=== PATIENT | female | born 1930 | race Caucasian/White ===

== ENCOUNTER 2019-03-19 15:52 | Emergency (ER) | payer OTHER ==
[~2019-03-19] VITALS: Ht 154.9 cm; Wt 49.0 kg
--- NOTE | 2019-03-19 16:15 | NUR ---
AAOX4. PATIENT WAS RIAN BY RA TO ER DUE TO C/O OF DIZZINESS FROM HOME. NAD. VSS. GAIT IS STEADY W/ ASSISTANCE. AWAITING MD FOR FURTHER EVALUATION. WILL CONTINUE TO MONITOR PATIENT FOR SAFETY. BLANKET GIVEN FOR COMFORT.
--- NOTE | 2019-03-19 16:20 | NUR ---
BLOOD DRAWN AND SENT TO LAB
[2019-03-19] MEDS ORDERED: IV NS 0.9% 500 ML BAG IV ONE (16:30)
--- NOTE | 2019-03-19 16:35 | NUR ---
URINE SPECIMEN SENT TO LAB
[2019-03-19 16:38] LABS: BASOPHILS % (AUTO) 0.3 % (0.0-2.0); EOSINOPHILS % (AUTO) 0.2 % (0.0-6.0); HEMATOCRIT 43 % (33-45); HEMOGLOBIN 14.5 g/dL (11.5-14.8); LYMPHOCYTES # (AUTO) 2.1 /CMM (0.8-4.8); LYMPHOCYTES % (AUTO) 24.8 % (20.0-44.0); MEAN CORPUSCULAR HGB CONC 34 g/dl (31.0-36.0); MEAN CORPUSCULAR VOLUME 94 fL (82-100); MONOCYTES # (AUTO) 1.1 /CMM (0.1-1.30); MONOCYTES % (AUTO) 12.7 % (2.0-12.0); NEUTROPHILS # (AUTO) 5.2 /CMM (1.8-8.9); PLATELET COUNT (AUTO) 245 /CMM (150-450); RED BLOOD CELL COUNT(AUTO) 4.57 MIL/uL (4.0-5.2); WHITE BLOOD COUNT (AUTO) 8.4 K/uL (4.3-11.0)
[2019-03-19 16:54] LABS: ALANINE AMINOTRANSFERASE 22 U/L (12-78); ALBUMIN 3.9 g/dL (3.4-5.0); ALKALINE PHOSPHATASE 43 U/L (46-116); ASPARTATE AMINOTRANSFERASE 25 U/L (15-37); BILIRUBIN,DIRECT 0.2 mg/dL (0.0-0.2); BILIRUBIN,TOTAL 0.6 mg/dL (0.2-1.0); TOTAL PROTEIN, SERUM 7.9 g/dL (6.4-8.2)
[2019-03-19 17:29] LABS: APPEARANCE,URINE Clear (CLEAR); BILIRUBIN,URINE Negative (NEGATIVE); BLOOD, URINE Negative Ery/uL (NEGATIVE); COLOR,URINE Yellow (YELLOW); KETONES,URINE Negative (NEGATIVE); LEUKOCYTE ESTERASE ,URINE Trace (NEGATIVE); NITRITE, URINE Negative (NEGATIVE); PH,URINE 7.5 (5.0-8.0); PROTEIN,URINE Negative (NEGATIVE); UGLUCOSE 100 MG/DL mg/dL (NEGATIVE); UROBILINOGEN,URINE 0.2 EU/dL (0.2)
[2019-03-19 17:46] LABS: RBC,URINE 0-2 /HPF (0-2)
[2019-03-19 17:47] LABS: BACTERIA,URINE Rare /HPF (None Seen); SQUAMOUS EPITHELIAL CELL,UR Few /HPF (None Seen); URINE AMORPHOUS URATE Few /HPF (None Seen); WBC,URINE 2-4/HPF /HPF (0-3)
[2019-03-19] MEDS ORDERED: METOCLOPRAMIDE HCL 10 MG/2 ML VIAL ONE ×2 (18:39→20:22)
[2019-03-19] MEDS ORDERED: MECLIZINE HCL 12.5 MG TABLET ONE (18:39)
[2019-03-19 18:58] LABS: CALCIUM, SERUM 9.2 mg/dL (8.5-10.1); CREATININE 0.7 mg/dL (0.6-1.3); POTASSIUM 3.9 mmol/L (3.5-5.1)
[2019-03-19] MEDS ORDERED: METOCLOPRAMIDE HCL 10 MG/2 ML VIAL IV ONE ×2 (19:00→20:30)
[2019-03-19] MEDS ORDERED: MECLIZINE HCL 12.5 MG TABLET PO ONE (19:00)
--- NOTE | 2019-03-19 19:00 | NUR ---
PATIENT TAKEN TO CT.
[2019-03-19 20:22] LABS: CREATININE 0.7 mg/dL (0.6-1.3)
[2019-03-19] MEDS ORDERED: DIAZEPAM 5 MG TABLET ONE (20:22)
[2019-03-19] MEDS ORDERED: DIAZEPAM 10 MG TABLET PO ONE (20:30)
[2019-03-19] MEDS ORDERED: ASPIRIN 325 MG TABLET PO ONE (22:00)
[2019-03-19] MEDS ORDERED: ONDANSETRON HCL/PF - ER 4 MG/2 ML VIAL IV ONE (22:00)
[2019-03-19] MEDS ORDERED: ASPIRIN 325 MG TABLET ONE (22:02)
[2019-03-19] MEDS ORDERED: ONDANSETRON HCL/PF 4 MG/2 ML VIAL ONE (22:02)
[2019-03-19 22:23] VITALS: BP 151/88
--- NOTE | 2019-03-19 23:34 | NUR ---
TRANSFER INFO: PT GOING TO [facility] DIRECT ADMIT TO ROOM 204-A LOTUS VELASCO FOR REPORT [phone]
--- NOTE | 2019-03-20 00:01 | NUR ---
REPORT GIVEN TO ROD GAUTAM.
== END 2019-03-20 00:41 | disposition short-term general hospital (02) ==
LOC: ER 15:56
DX: R42 Dizziness and giddiness (principal); R11.0 Nausea; I10 Essential (primary) hypertension; Z60.2 Problems related to living alone
CPT/HCPCS: 36415; 70450; 71045; 80048; 80076; 81001; 82565; 83605 ×2; 84484; 85025; 87081; 87086; 93005; 96365; 96375; 96376; 99285; A4216; J2405; J2765 ×2; J7040; J8597; 81000-TC

== ENCOUNTER 2019-03-25 12:13 | Emergency (ER) | payer OTHER ==
[~2019-03-25] VITALS: Ht 152.4 cm; Wt 51.3 kg
[2019-03-25] MEDS ORDERED: LORAZEPAM INJ 2 MG/ML VIAL ONE (12:44)
[2019-03-25] MEDS ORDERED: LORAZEPAM INJ 2 MG/ML VIAL IV ONE (13:00)
--- NOTE | 2019-03-25 13:03 | NUR ---
PT AAO, FEELING NAUSEOUS, DENIES PAIN. PLACED ON A MONITOR. WILL CONTINUE TO MONITOR
[2019-03-25 13:22] LABS: BASOPHILS % (AUTO) 0.5 % (0.0-2.0); EOSINOPHILS % (AUTO) 0.5 % (0.0-6.0); HEMATOCRIT 42 % (33-45); HEMOGLOBIN 14.1 g/dL (11.5-14.8); LYMPHOCYTES # (AUTO) 2.6 /CMM (0.8-4.8); LYMPHOCYTES % (AUTO) 30.1 % (20.0-44.0); MEAN CORPUSCULAR HGB CONC 33 g/dl (31.0-36.0); MEAN CORPUSCULAR VOLUME 95 fL (82-100); MONOCYTES # (AUTO) 0.8 /CMM (0.1-1.30); MONOCYTES % (AUTO) 9.9 % (2.0-12.0); PLATELET COUNT (AUTO) 288 /CMM (150-450); RED BLOOD CELL COUNT(AUTO) 4.44 MIL/uL (4.0-5.2); WHITE BLOOD COUNT (AUTO) 8.5 K/uL (4.3-11.0)
[2019-03-25 13:29] LABS: CALCIUM, SERUM 10.3 mg/dL (8.5-10.1); CREATININE 0.7 mg/dL (0.6-1.3); POTASSIUM 4.4 mmol/L (3.5-5.1)
[2019-03-25] MEDS ORDERED: MECLIZINE HCL 12.5 MG TABLET PO ONE (13:30)
[2019-03-25 13:35] LABS: ALBUMIN 3.8 g/dL (3.4-5.0); BILIRUBIN,DIRECT 0.2 mg/dL (0.0-0.2); BILIRUBIN,TOTAL 0.8 mg/dL (0.2-1.0)
[2019-03-25] MEDS ORDERED: MECLIZINE HCL 12.5 MG TABLET ONE (13:44)
--- NOTE | 2019-03-25 14:13 | NUR ---
Patient able to ambulate to bathroom no assist denies pain and dizzy continue to monitor
[2019-03-25] MEDS ORDERED: ONDANSETRON HCL/PF - ER 4 MG/2 ML VIAL IV ONE (15:00)
[2019-03-25] MEDS ORDERED: IV NS 0.9% 1,000 ML BAG IV ONE (15:00)
[2019-03-25] MEDS ORDERED: ONDANSETRON HCL/PF 4 MG/2 ML VIAL ONE (15:07)
--- NOTE | 2019-03-25 15:30 | NUR ---
Social service consult requested by Dr. Obregon due to pt. feeling unsafe to return home. Pt. is a 88 year old female who came to [facility] complaining of dizziness. Pt. was recently in the ED a few days ago for the same reason. MARCI met with pt. bedside. Pt. is alert and oriented x 4. Pt. is a pleasant lady. Pt. states she lives alone and doesn't feel safe at home. Pt. has no family. Pt. states she was very independent up until now. She is requesting assistance and stated, " I need someone to help me and care for me." MARCI discussed case with Dr. Oscar and informed him about pt' s concerns. Pt. stated she is willing to go to a halfway until she can get better. DR Reddy to follow up with MARCI to inform if pt. will be admitted or not.
[2019-03-25] MEDS ORDERED: FLUO-120 PO (15:34)
[2019-03-25] MEDS ORDERED: FENO160T PO (15:34)
[2019-03-25] MEDS ORDERED: LISI-603 PO (15:34)
--- NOTE | 2019-03-25 16:36 | NUR ---
spoke to kaycee and patient is going to [facility] room 109, will call back for Ambulance ETA.
--- NOTE | 2019-03-25 16:39 | NUR ---
report given to marely GAUTAM from [facility] for EFRAIN.
--- NOTE | 2019-03-25 17:05 | NUR ---
pt awake sitting on the edge of the bed. no dizziness. made aware transfer to nursing facility. hermelinda charge nurse placed call report to facility.
--- NOTE | 2019-03-25 17:06 | NUR ---
OFFERED FOOD. APPRECIATED.
--- NOTE | 2019-03-25 19:30 | NUR ---
PER MARINE SAFETY OFFICER JERAD, PT WILL BE PICKED UP IN 30 MIN BY [facility]
--- NOTE | 2019-03-25 19:39 | NUR ---
REPORT GIVEN TO [facility]
--- NOTE | 2019-03-25 19:52 | NUR ---
IV removed. Catheter intact and site benign. Pressure and 4x4 applied to site. No bleeding noted. pt was picked up by ambulance via gurney in stable condition. Patient discharged to [facility] in stable condition. Written and verbal after care instructions given. Patient verbalized understanding of instruction.
--- NOTE | 2019-03-25 19:53 | NUR ---
all belongings picked up by pt/ ambulance supervisor tunnel heading
[2019-03-25 19:54] VITALS: BP 145/58
== END 2019-03-25 19:54 | disposition home or self-care (01) ==
LOC: ER 12:16
DX: R11.0 Nausea (principal); R42 Dizziness and giddiness; I10 Essential (primary) hypertension; Z60.2 Problems related to living alone
CPT/HCPCS: 36415; 80048; 80076; 85025; 87081; 93005; 96361; 96374; 96375; 99285; J2060; J2405; J7030 ×2; J8597

== ENCOUNTER 2019-04-09 13:08 | Emergency (ER) | payer OTHER ==
[~2019-04-09] VITALS: Ht 152.4 cm; Wt 49.4 kg
[~2019-04-09 13:08] MED LIST: FENO160T PO; FLUO-120 PO; LISI-603 PO
--- NOTE | 2019-04-09 13:10 | NUR ---
BIB RA 890 FROM HOME,C/O WEAKNESS AND DIZZINESS X 1 HR. PATIENT A/OX4, BREATHING EVEN AND UNLABORED, NO SOB NOTED, CHANGED INTO GOWN, ATTACHED TO THE ESCALATOR SERVICE MECHANIC. KEPT COMFORTABLE.
[2019-04-09 14:00] LABS: BASOPHILS # (AUTO) 0.1 /CMM (0.0-0.2); BASOPHILS % (AUTO) 0.6 % (0.0-2.0); EOSINOPHILS % (AUTO) 0.3 % (0.0-6.0); HEMATOCRIT 41 % (33-45); LYMPHOCYTES # (AUTO) 1.4 /CMM (0.8-4.8); LYMPHOCYTES % (AUTO) 16.4 % (20.0-44.0); MEAN CORPUSCULAR HGB CONC 34 g/dl (31.0-36.0); MEAN CORPUSCULAR VOLUME 95 fL (82-100); MONOCYTES # (AUTO) 0.8 /CMM (0.1-1.30); MONOCYTES % (AUTO) 8.7 % (2.0-12.0); NEUTROPHILS # (AUTO) 6.5 /CMM (1.8-8.9); PLATELET COUNT (AUTO) 256 /CMM (150-450); RED BLOOD CELL COUNT(AUTO) 4.37 MIL/uL (4.0-5.2); WHITE BLOOD COUNT (AUTO) 8.8 K/uL (4.3-11.0)
[2019-04-09] MEDS ORDERED: MECLIZINE HCL 12.5 MG TABLET PO ONE (14:00)
[2019-04-09] MEDS ORDERED: IV NS 0.9% 1,000 ML BAG IV ONE ×2 (14:00)
[2019-04-09 14:03] LABS: CALCIUM, SERUM 9.3 mg/dL (8.5-10.1); CARBON DIOXIDE 25 mmol/L (21-32); CHLORIDE 92 mmol/L (98-107); CREATININE 0.7 mg/dL (0.6-1.3); GLUCOSE 126 mg/dL (74-106); POTASSIUM 4.3 mmol/L (3.5-5.1); SODIUM SERUM 127 mmol/L (136-145); UREA NITROGEN, BLOOD 24 mg/dL (7-18)
--- NOTE | 2019-04-09 14:05 | NUR ---
PATIENT ASSISTED TO RESTROOM UA SAMPLE OBTAINED AND SENT TO LAB. THEN PATIENT TAKEN TO CT.
[2019-04-09] MEDS ORDERED: MECLIZINE HCL 25 MG TABLET ONE (14:09)
[2019-04-09 14:12] LABS: ALANINE AMINOTRANSFERASE 28 U/L (12-78); ALBUMIN 4.2 g/dL (3.4-5.0); ALKALINE PHOSPHATASE 46 U/L (46-116); ASPARTATE AMINOTRANSFERASE 28 U/L (15-37); BILIRUBIN,DIRECT 0.2 mg/dL (0.0-0.2); BILIRUBIN,TOTAL 0.6 mg/dL (0.2-1.0); TOTAL PROTEIN, SERUM 8.5 g/dL (6.4-8.2)
[2019-04-09 14:20] LABS: APPEARANCE,URINE Clear (CLEAR); BILIRUBIN,URINE Negative (NEGATIVE); BLOOD, URINE Trace-intact Ery/uL (NEGATIVE); COLOR,URINE Yellow (YELLOW); KETONES,URINE Negative (NEGATIVE); LEUKOCYTE ESTERASE ,URINE Negative (NEGATIVE); NITRITE, URINE Negative (NEGATIVE); PROTEIN,URINE Negative (NEGATIVE); UGLUCOSE Negative (NEGATIVE); UROBILINOGEN,URINE 0.2 EU/dL (0.2)
[2019-04-09 14:24] LABS: BACTERIA,URINE Few /HPF (None Seen); RBC,URINE 0-2 /HPF (0-2); SQUAMOUS EPITHELIAL CELL,UR Few /HPF (None Seen); WBC,URINE 0-2 /HPF (0-3)
--- NOTE | 2019-04-09 15:17 | NUR ---
GAVE MOVESHEET TO ADMITTING
[2019-04-09] MEDS ORDERED: ONDANSETRON HCL/PF 4 MG/2 ML VIAL IV ONE ×2 (15:30→17:00)
[2019-04-09] MEDS ORDERED: ONDANSETRON HCL/PF 4 MG/2 ML VIAL ONE ×2 (15:35→16:39)
--- NOTE | 2019-04-09 15:50 | NUR ---
PATIENT ASSISTED TO RESTROOM, ABLE TO AMBULATE WITH STEADY GAIT. NO DISTRESS NOTED.
--- NOTE | 2019-04-09 16:00 | NUR ---
PER ADMITTING PT WILL LIKELY GO TO [facility] PENDING BED ASSIGNMENT
--- NOTE | 2019-04-09 17:00 | NUR ---
[facility] [phone]TA will call back Dr Jones Received a call from Shara poe CM.
--- NOTE | 2019-04-09 17:09 | NUR ---
REPORT GIVEN TO LISSETTE GAUTAM AT [facility].
--- NOTE | 2019-04-09 17:35 | NUR ---
RECEIVED A CALL FROM GIACOMO DUFF, ETA FOR [facility] IS 1 HOUR. [facility].
[2019-04-09 17:52] VITALS: BP 144/57
--- NOTE | 2019-04-09 18:20 | NUR ---
[phone]
--- NOTE | 2019-04-09 18:26 | NUR ---
report given to mary kay mtz for alberto.
--- NOTE | 2019-04-09 18:44 | NUR ---
REPORT GIVEN TO BEAMING INSPECTOR. PATIENT A/OX4, FORGETFUL AT TIMES. IV LINE ON ALLISON DISLODGED, INSERTED AN IV LINE ON RIGHT WRIST G20. PATIENT IN NO DSITRESS, STILL C/O OF NAUSEA, DENIES DIZZINESS. NEEDS ATTENDED. [facility]
== END 2019-04-09 18:55 | disposition short-term general hospital (02) ==
LOC: ER 13:09
DX: E87.1 Hypo-osmolality and hyponatremia (principal); R42 Dizziness and giddiness; I10 Essential (primary) hypertension; Z60.2 Problems related to living alone; Z79.899 Other long term (current) drug therapy
CPT/HCPCS: 36415; 70450; 71045; 80048; 80076; 81001; 82962; 84484; 85025; 93005; 96361; 96374; 96376; 99285; J2405 ×2; J7030; J8597; 81000-TC

== ENCOUNTER 2019-04-11 12:26 | Inpatient (IN) | payer OTHER ==
[~2019-04-11] VITALS: Ht 152.4 cm; Wt 52.4 kg
[~2019-04-11 12:26] MED LIST changes: -FLUO-120 PO
[2019-04-11 13:20] LABS: BASOPHILS % (AUTO) 0.2 % (0.0-2.0); HEMOGLOBIN 12.9 g/dL (11.5-14.8); LYMPHOCYTES # (AUTO) 0.7 /CMM (0.8-4.8); MONOCYTES # (AUTO) 0.5 /CMM (0.1-1.30)
[2019-04-11 13:29] LABS: EOSINOPHILS % (AUTO) 0.1 % (0.0-6.0); HEMATOCRIT 38 % (33-45); MEAN CORPUSCULAR HGB CONC 34 g/dl (31.0-36.0); MEAN CORPUSCULAR VOLUME 95 fL (82-100); MONOCYTES % (AUTO) 6.6 % (2.0-12.0); NEUTROPHILS # (AUTO) 6.7 /CMM (1.8-8.9); NEUTROPHILS % (AUTO) 84.1 % (43.0-81.0); PLATELET COUNT (AUTO) 234 /CMM (150-450); RED BLOOD CELL COUNT(AUTO) 3.96 MIL/uL (4.0-5.2)
--- NOTE | 2019-04-11 13:29 | NUR ---
patient sent to xray ct by cloth grader
[2019-04-11] MEDS ORDERED: IV NS 0.9% 1,000 ML BAG IV ONE ×2 (13:30→16:30)
[2019-04-11] MEDS ORDERED: ONDANSETRON HCL/PF - ER 4 MG/2 ML VIAL IV ONE ×2 (13:30→15:00)
[2019-04-11] MEDS ORDERED: ONDANSETRON HCL/PF 4 MG/2 ML VIAL ONE ×2 (13:31→13:56)
[2019-04-11 13:38] LABS: ALANINE AMINOTRANSFERASE 25 U/L (12-78); ALBUMIN 3.6 g/dL (3.4-5.0); ALKALINE PHOSPHATASE 43 U/L (46-116); ASPARTATE AMINOTRANSFERASE 29 U/L (15-37); BILIRUBIN,DIRECT 0.2 mg/dL (0.0-0.2); CALCIUM, SERUM 8.7 mg/dL (8.5-10.1); CARBON DIOXIDE 27 mmol/L (21-32); CHLORIDE 84 mmol/L (98-107); CREATININE 0.6 mg/dL (0.6-1.3); GLUCOSE 167 mg/dL (74-106); POTASSIUM 4.5 mmol/L (3.5-5.1); TOTAL PROTEIN, SERUM 7.3 g/dL (6.4-8.2)
--- NOTE | 2019-04-11 13:41 | NUR ---
SODIUM 118
[2019-04-11 13:42] LABS: SODIUM SERUM 118 mmol/L (136-145)
[2019-04-11 13:46] LABS: UREA NITROGEN, BLOOD 13 mg/dL (7-18)
[2019-04-11] MEDS ORDERED: LORAZEPAM INJ 2 MG/ML VIAL ONE (14:55)
[2019-04-11] MEDS ORDERED: LORAZEPAM INJ 2 MG/ML VIAL IV ONE (15:00)
[2019-04-11 15:39] LABS: APPEARANCE,URINE Clear (CLEAR); BILIRUBIN,URINE Negative (NEGATIVE); BLOOD, URINE Negative Ery/uL (NEGATIVE); COLOR,URINE Yellow (YELLOW); KETONES,URINE Negative (NEGATIVE); LEUKOCYTE ESTERASE ,URINE Small (NEGATIVE); NITRITE, URINE Negative (NEGATIVE); PROTEIN,URINE Negative (NEGATIVE); UGLUCOSE Negative (NEGATIVE); UROBILINOGEN,URINE 0.2 EU/dL (0.2)
[2019-04-11 16:19] LABS: BACTERIA,URINE Few /HPF (None Seen); SQUAMOUS EPITHELIAL CELL,UR Moderate /HPF (None Seen)
[2019-04-11 16:21] LABS: RBC,URINE 0-2 /HPF (0-2)
[2019-04-11 18:09] LABS: OSMOLALITY,URINE 216 mOS/kg (340-1090)
[2019-04-11 18:11] LABS: OSMOLALITY,SERUM 251 mOS/kg (278-305)
--- NOTE | 2019-04-11 18:50 | NUR ---
NURSING SUP GAVE BED 304-2.
--- NOTE | 2019-04-11 19:41 | NUR ---
REPORT GIVEN TO VENKATA
[2019-04-11 20:00] VITALS: BP 148/73
--- NOTE | 2019-04-11 20:20 | NUR ---
PT TRANSFERRED TO TELE PER [employer]S [employer].
--- NOTE | 2019-04-11 20:41 | NUR ---
TELE/RN NOTES RECEIVED PT. FROM ER VIA DEIDRA. PT. IS AWAKE, ALERT AND ORIENTED X 2-3, WITH MOMENTS OF FORGETFULLNESS/CONFUSION NOTED. BREATHING EVEN AND UNLABORED ON ROOM AIR. NO SOB, RESPIRATORY DISTRESS OR COMPLAINTS OF PAIN NOTED AT THIS TIME. NO COMPLAINTS OF DIZZINESS OR LIGHTHEADEDNESS NOTED AT THIS TIME. ORIENTED PT. TO ROOM. PLACED EXTERNAL INFORMATION SECURITY SPECIALIST ON PT. CURRENT RHYTHM = SINUS RHYTHM HR 82. PT. WITH RIGHT AC 20 GAUGE IV SALINE LOCK PRESENT, PATENT AND INTACT. EDUCATED PT. ON CALLING FOR ASSISTANCE AND NOT GETTING OUT OF BED WITHOUT ASSISTANCE. PT. VERBALIZED UNDERSTANDING. BED LOCKED AND IN LOWEST POSITION, SIDE RAILS UP X3, BED ALARM ON, CALL LIGHT WITHIN REACH, WILL CALL DR. SANTOS FOR ADMITTING ORDERS. WILL CONTINUE TO MONITOR.
--- NOTE | 2019-04-11 21:28 | NUR ---
TELE/RN NOTES SPOKE WITH DR. SANTOS AND RECEIVED ADMITTING ORDERS. WILL CARRY OUT ORDERS. WILL CONTINUE TO MONITOR.
[2019-04-11] MEDS ORDERED: hydrALAZINE HCL 10 MG TABLET PO PRN (22:00)
[2019-04-11] MEDS ORDERED: ZOLPIDEM TARTRATE 5 MG TABLET PO PRN (22:00)
[2019-04-11] MEDS ORDERED: ONDANSETRON HCL/PF 4 MG/2 ML VIAL IV PRN (22:00)
[2019-04-11] MEDS ORDERED: ACETAMINOPHEN 325 MG TABLET PO PRN (22:00)
[2019-04-11] MEDS: IV NS 0.9% 1,000 ML IV PRN (22:44)
[2019-04-11] MEDS: LISINOPRIL (20MG) 20 MG TABLET PO SCH (22:46)
[2019-04-11] MEDS ORDERED: MECLIZINE HCL 12.5 MG TABLET PO PRN (23:00)
[2019-04-12] VITALS: BP 118/70
[2019-04-12 04:00] VITALS: BP 112/54
[2019-04-12 05:58] LABS: CALCIUM, SERUM 8.1 mg/dL (8.5-10.1); CREATININE 0.6 mg/dL (0.6-1.3)
[2019-04-12 06:13] LABS: BASOPHILS % (AUTO) 0.4 % (0.0-2.0); EOSINOPHILS % (AUTO) 0.4 % (0.0-6.0); HEMATOCRIT 33 % (33-45); HEMOGLOBIN 11.1 g/dL (11.5-14.8); LYMPHOCYTES # (AUTO) 1.1 /CMM (0.8-4.8); LYMPHOCYTES % (AUTO) 16.5 % (20.0-44.0); MEAN CORPUSCULAR HGB CONC 34 g/dl (31.0-36.0); MEAN CORPUSCULAR VOLUME 96 fL (82-100); MONOCYTES # (AUTO) 0.8 /CMM (0.1-1.30); NEUTROPHILS # (AUTO) 4.6 /CMM (1.8-8.9); NEUTROPHILS % (AUTO) 70.7 % (43.0-81.0); PLATELET COUNT (AUTO) 219 /CMM (150-450); RED BLOOD CELL COUNT(AUTO) 3.42 MIL/uL (4.0-5.2); WHITE BLOOD COUNT (AUTO) 6.5 K/uL (4.3-11.0)
[2019-04-12] MEDS: IV NS 0.9% 1,000 ML IV PRN (06:33)
--- NOTE | 2019-04-12 06:33 | NUR ---
TELE/RN NOTES PT. IS LYING IN BED RESTING. BREATHING EVEN AND UNLABORED ON ROOM AIR. NO SOB, RESPIRATORY DISTRESS OR COMPLAINTS OF PAIN NOTED AT THIS TIME AND THROUGHOUT SHIFT. NO COMPLAINTS OF DIZZINESS OR LIGHTHEADEDNESS NOTED AT THIS TIME AND THROUGHOUT SHIFT. PT. WITH EXTERNAL RETAIL ASSOCIATE MANAGER BILINGUAL PRESENT AND INTACT, PT. CURRENT RHYTHM = SINUS RHYTHM HR 93. PT. WITH RIGHT AC 20 GAUGE PERIPHERAL IV PRESENT, PATENT AND INTACT ADMINISTERING TO PT. NS @ 100ML/HR. ALL PT. NEEDS MET. BED LOCKED AND IN LOWEST POSITION, SIDE RAILS UP X3, BED ALARM ON, CALL LIGHT WITHIN REACH, WILL CALL DR. SANTOS FOR ADMITTING ORDERS. WILL ENDORSE TO DAYSHIFT NURSE FOR CONTINUITY OF CARE.
[2019-04-12] MEDS ORDERED: PANTOPRAZOLE 40 MG TABLET.DR PO SCH (07:30)
[2019-04-12 08:00] VITALS: BP_SYST 108; BP_SYST 119; BP_DIAS 40; BP_DIAS 72
--- NOTE | 2019-04-12 08:00 | NUR ---
TELE/RN NOTES RECEIVED PT AWAKE, ALERT AND ORIENTED X 2-3, WITH MOMENTS OF FORGETFULLNESS /CONFUSION NOTED. BREATHING EVEN AND UNLABORED ON ROOM AIR. NO SOB, RESPIRATORY DISTRESS OR COMPLAINTS OF PAIN NOTED AT THIS TIME. NO COMPLAINTS OF DIZZINESS OR LIGHTHEADEDNESS NOTED AT THIS TIME. ORIENTED PT. TO ROOM. PLACED EXTERNAL RETREADER ON PT. CURRENT RHYTHM = SINUS TACH HR 111. PT. WITH RIGHT AC 20 GAUGE IV SALINE LOCK PRESENT, PATENT AND INTACT. EDUCATED PT. ON CALLING FOR ASSISTANCE AND NOT GETTING OUT OF BED WITHOUT ASSISTANCE. PT. VERBALIZED UNDERSTANDING. BED LOCKED AND IN LOWEST POSITION, SIDE RAILS UP X3, BED ALARM ON, CALL LIGHT WITHIN REACH,WILL CONTINUE TO MONITOR.
[2019-04-12] MEDS: LISINOPRIL (20MG) 20 MG TABLET PO SCH (09:00)
--- NOTE | 2019-04-12 13:30 | NUR ---
PT AMBULATED WITH P.T. 50 FEET WITH STANDBY ASSIST.PT TOLERATED WELL WITH O2 AT 2L/MIN VIA NC.
[2019-04-12 16:00] VITALS: BP 116/50
--- NOTE | 2019-04-12 18:35 | NUR ---
DISCHARGED PT TO [facility] AND GAVE REPORT TO LOTUS MERRILL MOTORCYCLE DELIVERER OF [facility] VIA AMBULANCE.WITH STABLE V/S.PT AMBULATES WITH NO C/O PAIN OR DISTRESS.O2 SAT 94% O ROOM AIR.IV H/L REMOVED TO RT AC WITHOUT BLEEDING NOTED.
== END 2019-04-12 18:55 | DRG 641 ==
LOC: ER 12:27 → MED 20:09 → TELE 22:20 → MED 04-12 09:08
PROVIDERS: ADMIT Internal Medicine; ATTEND Internal Medicine
DX: E87.1 Hypo-osmolality and hyponatremia (principal); E86.0 Dehydration; I10 Essential (primary) hypertension; E78.5 Hyperlipidemia, unspecified; R53.1 Weakness
CPT/HCPCS: 36415; 70450-TC; 71045-TC; 80048-TC; 80076-TC; 81000-TC; 83605-TC; 83690-TC; 83935-TC; 84484-TC; 85025-TC; 87081-TC; 97116-TC; 97530-TC; A6403; G0378; J2060; J2405; J7030

== ENCOUNTER 2019-05-30 08:42 | Emergency (ER) | payer OTHER ==
[~2019-05-30] VITALS: Ht 152.4 cm; Wt 48.5 kg
--- NOTE | 2019-05-30 08:52 | NUR ---
JORGE RA 878 From Home "feeling Dizzy nausea/vomiting Hx of same before." Patient a/ox4, breathing even and unlabored, no sob noted, needs attended. Changed into gown, Attached to the diagnostic cardiac sonographer.
--- NOTE | 2019-05-30 08:55 | NUR ---
Dr. Cox at bedside for eval.
[2019-05-30] MEDS ORDERED: MECLIZINE HCL 25 MG TABLET ONE (08:59)
[2019-05-30] MEDS ORDERED: MECLIZINE HCL 12.5 MG TABLET PO ONE (09:00)
[2019-05-30] MEDS ORDERED: IV NS 0.9% 1,000 ML BAG IV ONE (09:00)
[2019-05-30 09:03] LABS: BASOPHILS # (AUTO) 0.1 /CMM (0.0-0.2); EOSINOPHILS % (AUTO) 0.8 % (0.0-6.0); HEMATOCRIT 44 % (33-45); HEMOGLOBIN 14.7 g/dL (11.5-14.8); LYMPHOCYTES # (AUTO) 2.4 /CMM (0.8-4.8); LYMPHOCYTES % (AUTO) 30.7 % (20.0-44.0); MEAN CORPUSCULAR HGB CONC 33 g/dl (31.0-36.0); MEAN CORPUSCULAR VOLUME 94 fL (82-100); MONOCYTES # (AUTO) 0.7 /CMM (0.1-1.30); MONOCYTES % (AUTO) 8.4 % (2.0-12.0); NEUTROPHILS # (AUTO) 4.6 /CMM (1.8-8.9); NEUTROPHILS % (AUTO) 59.1 % (43.0-81.0); PLATELET COUNT (AUTO) 272 /CMM (150-450); RED BLOOD CELL COUNT(AUTO) 4.69 MIL/uL (4.0-5.2); WHITE BLOOD COUNT (AUTO) 7.8 K/uL (4.3-11.0)
[2019-05-30 09:14] LABS: CALCIUM, SERUM 10.1 mg/dL (8.5-10.1); CARBON DIOXIDE 26 mmol/L (21-32); CHLORIDE 98 mmol/L (98-107); CREATININE 0.9 mg/dL (0.6-1.3); GLUCOSE 178 mg/dL (74-106); POTASSIUM 3.7 mmol/L (3.5-5.1); SODIUM SERUM 136 mmol/L (136-145); UREA NITROGEN, BLOOD 15 mg/dL (7-18)
[2019-05-30] MEDS ORDERED: ONDANSETRON HCL/PF 4 MG/2 ML VIAL ONE (09:14)
[2019-05-30] MEDS ORDERED: CT SWABBABLE VALVE TRANS SET 1 EA INFUS.SET MC ONE (09:19)
[2019-05-30] MEDS ORDERED: IOHEXOL-350 100 ML VIAL IV ONE (09:19)
[2019-05-30] MEDS ORDERED: IV NS 0.9% 250 ML IV ONE (09:20)
--- NOTE | 2019-05-30 09:20 | NUR ---
patient taken to ct.
[2019-05-30] MEDS ORDERED: ONDANSETRON HCL/PF 4 MG/2 ML VIAL IV ONE (09:30)
[2019-05-30 11:00] LABS: APPEARANCE,URINE Clear (CLEAR); BILIRUBIN,URINE Negative (NEGATIVE); BLOOD, URINE Negative Ery/uL (NEGATIVE); COLOR,URINE Yellow (YELLOW); KETONES,URINE Negative (NEGATIVE); LEUKOCYTE ESTERASE ,URINE Negative (NEGATIVE); NITRITE, URINE Negative (NEGATIVE); PROTEIN,URINE Negative (NEGATIVE); UGLUCOSE Negative (NEGATIVE); UROBILINOGEN,URINE 0.2 EU/dL (0.2)
--- NOTE | 2019-05-30 11:39 | NUR ---
patient denies dizziness. Patient in stable condition. IV removed. Catheter intact and site benign. Pressure and 4x4 applied to site. No bleeding noted. Patient discharged to home in stable condition. Written and verbal after care instructions given. Patient verbalizes understanding of instruction.
[2019-05-30 11:42] VITALS: BP 128/69
== END 2019-05-30 11:42 | disposition home or self-care (01) ==
LOC: ER 08:44
DX: R42 Dizziness and giddiness (principal); I10 Essential (primary) hypertension; Z60.2 Problems related to living alone; Z79.899 Other long term (current) drug therapy
CPT/HCPCS: 36415; 70450; 70496; 70498; 71045; 80048; 81001; 82962; 84484; 85025; 85730; 93005; 96361; 96374; 99284; J2405; J7030; J7050; J8597; Q9967; 81000-TC

== ENCOUNTER 2019-05-30 17:01 | Emergency (ER) | payer OTHER ==
[~2019-05-30] VITALS: Ht 152.4 cm; Wt 54.4 kg
--- NOTE | 2019-05-30 17:20 | NUR ---
BIB Neighbor "Live in apartment-she knocked at door- Dizzy/weak"PATIENT A/OX4, BREATHING EVEN AND UNLABORED, NO SOB NOTED, CHANGED INTO GOWN ATTACHED TO THE COMPUTER CONSULTANT. PATIENT DENIES DIZZINESS, C/O OF RIGHT ANKLE CRAMPING.
[2019-05-30] MEDS ORDERED: ONDANSETRON HCL/PF 4 MG/2 ML VIAL IVP ONE (17:30)
[2019-05-30] MEDS ORDERED: MECLIZINE HCL 12.5 MG TABLET PO ONE ×2 (17:30→21:30)
[2019-05-30] MEDS ORDERED: ONDANSETRON HCL/PF 4 MG/2 ML VIAL ONE ×2 (17:34→21:20)
[2019-05-30] MEDS ORDERED: MECLIZINE HCL 25 MG TABLET ONE ×2 (17:34→21:20)
[2019-05-30] MEDS ORDERED: LORAZEPAM INJ 2 MG/ML VIAL ONE (17:47)
[2019-05-30 17:51] LABS: BASOPHILS % (AUTO) 0.3 % (0.0-2.0); EOSINOPHILS % (AUTO) 0.1 % (0.0-6.0); HEMATOCRIT 45 % (33-45); HEMOGLOBIN 14.6 g/dL (11.5-14.8); LYMPHOCYTES # (AUTO) 1.3 /CMM (0.8-4.8); LYMPHOCYTES % (AUTO) 13.2 % (20.0-44.0); MEAN CORPUSCULAR HGB CONC 33 g/dl (31.0-36.0); MEAN CORPUSCULAR VOLUME 95 fL (82-100); MONOCYTES # (AUTO) 0.8 /CMM (0.1-1.30); MONOCYTES % (AUTO) 8.3 % (2.0-12.0); NEUTROPHILS # (AUTO) 7.7 /CMM (1.8-8.9); NEUTROPHILS % (AUTO) 78.1 % (43.0-81.0); PLATELET COUNT (AUTO) 283 /CMM (150-450); RED BLOOD CELL COUNT(AUTO) 4.67 MIL/uL (4.0-5.2); WHITE BLOOD COUNT (AUTO) 9.9 K/uL (4.3-11.0)
--- NOTE | 2019-05-30 17:57 | NUR ---
CALLED FOR TELE BED AND TURNED IN MOVE SHEET
[2019-05-30] MEDS ORDERED: LORAZEPAM INJ 2 MG/ML VIAL IV ONE (18:00)
[2019-05-30 18:04] LABS: CALCIUM, SERUM 10.1 mg/dL (8.5-10.1); CARBON DIOXIDE 27 mmol/L (21-32); CHLORIDE 98 mmol/L (98-107); GLUCOSE 142 mg/dL (74-106); POTASSIUM 3.9 mmol/L (3.5-5.1); SODIUM SERUM 138 mmol/L (136-145); UREA NITROGEN, BLOOD 10 mg/dL (7-18)
[2019-05-30 18:11] LABS: ALANINE AMINOTRANSFERASE 24 U/L (12-78); ALBUMIN 4.2 g/dL (3.4-5.0); ALKALINE PHOSPHATASE 54 U/L (46-116); ASPARTATE AMINOTRANSFERASE 30 U/L (15-37); BILIRUBIN,DIRECT 0.1 mg/dL (0.0-0.2); BILIRUBIN,TOTAL 0.5 mg/dL (0.2-1.0); TOTAL PROTEIN, SERUM 8.8 g/dL (6.4-8.2)
--- NOTE | 2019-05-30 18:26 | NUR ---
NEIGHBOR CONTACT # - KENYA COLÓN - CONTACT IF PATIENT'S READY FOR DISCHARGE.
--- NOTE | 2019-05-30 18:53 | NUR ---
dr. dukes called to speak with dr. muro
[2019-05-30] MEDS ORDERED: IV NS 0.9% 500 ML BAG IV ONE (19:00)
--- NOTE | 2019-05-30 19:42 | NUR ---
PT RESTING IN BED. NO DISTRESS NOTED. VSS. AXO4.
--- NOTE | 2019-05-30 21:29 | NUR ---
ACCEPTED AT [facility] BED [id number] NUMBER FOR REPORT DR DURBIN ACCEPTING DR WAITING FOR CALL BACK FOR AMBULANCE ETA
[2019-05-30] MEDS ORDERED: ONDANSETRON HCL/PF - ER 4 MG/2 ML VIAL IV ONE (21:30)
--- NOTE | 2019-05-30 21:59 | NUR ---
[facility] ETA [id number]
[2019-05-30 23:00] VITALS: BP 145/84
--- NOTE | 2019-05-30 23:00 | NUR ---
REPORT GIVEN TO GARFIELD GAUTAM.
== END 2019-05-30 23:00 ==
LOC: ER 17:07
DX: R42 Dizziness and giddiness (principal); R11.0 Nausea; H55.00 Unspecified nystagmus; R00.0 Tachycardia, unspecified; I10 Essential (primary) hypertension; Z60.2 Problems related to living alone; Z79.899 Other long term (current) drug therapy
CPT/HCPCS: 36415; 80048; 80076; 84484; 85025; 87081; 93005; 96361; 96374; 96375; 99284; J2060; J2405 ×2; J7040; J8597 ×2

== ENCOUNTER 2019-06-16 07:48 | Emergency (ER) | payer OTHER ==
[~2019-06-16] VITALS: Ht 157.5 cm; Wt 54.9 kg
[~2019-06-16 07:48] MED LIST changes: -FENO160T PO
--- NOTE | 2019-06-16 07:50 | NUR ---
PATIENT BIB RA 39 FROM HOME, C/O WEAKNESS AND DIZZINESS. PATIENT A/O X 4. NO ACUTE DISTRESS. NO C/O PAIN OR DISCOMFORT. PATIENT CONNECTED TO MONITOR. WILL CONTINUE TO MONITOR ACCORDINGLY
--- NOTE | 2019-06-16 07:58 | NUR ---
DR WHEELER AT BEDSIDE
[2019-06-16 08:19] LABS: BASOPHILS # (AUTO) 0.1 /CMM (0.0-0.2); BASOPHILS % (AUTO) 0.9 % (0.0-2.0); CARBON DIOXIDE 32 mmol/L (21-32); CHLORIDE 98 mmol/L (98-107); CREATININE 0.7 mg/dL (0.6-1.3); EOSINOPHILS % (AUTO) 2.2 % (0.0-6.0); GLUCOSE 118 mg/dL (74-106); HEMATOCRIT 44 % (33-45); HEMOGLOBIN 14.3 g/dL (11.5-14.8); LYMPHOCYTES # (AUTO) 2.1 /CMM (0.8-4.8); LYMPHOCYTES % (AUTO) 28.3 % (20.0-44.0); MEAN CORPUSCULAR HGB CONC 33 g/dl (31.0-36.0); MEAN CORPUSCULAR VOLUME 94 fL (82-100); MONOCYTES # (AUTO) 0.8 /CMM (0.1-1.30); MONOCYTES % (AUTO) 10.5 % (2.0-12.0); NEUTROPHILS # (AUTO) 4.3 /CMM (1.8-8.9); NEUTROPHILS % (AUTO) 58.1 % (43.0-81.0); PLATELET COUNT (AUTO) 323 /CMM (150-450); POTASSIUM 3.9 mmol/L (3.5-5.1); RED BLOOD CELL COUNT(AUTO) 4.63 MIL/uL (4.0-5.2); SODIUM SERUM 139 mmol/L (136-145); UREA NITROGEN, BLOOD 10 mg/dL (7-18); WHITE BLOOD COUNT (AUTO) 7.4 K/uL (4.3-11.0)
--- NOTE | 2019-06-16 09:10 | NUR ---
PLACED CALL TO [facility] ([phone]) AND SPOKE WITH TYRA. APPOINTMENT WITH DR CATALAN ARRANGED FOR 06/17/19 AT 2PM. PATIENT MADE AWARE AND VERBALIZED UNDERSTANDING.
--- NOTE | 2019-06-16 09:13 | NUR ---
Patient discharged to home in stable condition. Written and verbal after care instructions given. Patient verbalizes understanding of instruction.
[2019-06-16 09:24] VITALS: BP 146/60
== END 2019-06-16 09:42 | disposition home or self-care (01) ==
LOC: ER 07:52
DX: R42 Dizziness and giddiness (principal); I10 Essential (primary) hypertension; Z60.2 Problems related to living alone; Z79.899 Other long term (current) drug therapy
CPT/HCPCS: 36415; 71045-TC; 80048-TC; 84484-TC; 85025-TC

== ENCOUNTER 2019-06-17 13:28 | Emergency (ER) | payer OTHER ==
[~2019-06-17] VITALS: Ht 152.4 cm; Wt 47.6 kg
--- NOTE | 2019-06-17 13:43 | NUR ---
Severe dizziness noted this morning- she felt like " she is spinning/ lightheaded sensation- worst today; thus, she called 911, pt awake, alert, -sob, nad noted, pending md olivo
[2019-06-17] MEDS ORDERED: IV NS 0.9% 500 ML BAG IV ONE (14:30)
[2019-06-17 14:39] LABS: BASOPHILS # (AUTO) 0.1 /CMM (0.0-0.2); BASOPHILS % (AUTO) 0.9 % (0.0-2.0); HEMATOCRIT 42 % (33-45); HEMOGLOBIN 13.7 g/dL (11.5-14.8); LYMPHOCYTES # (AUTO) 1.7 /CMM (0.8-4.8); LYMPHOCYTES % (AUTO) 23.8 % (20.0-44.0); MEAN CORPUSCULAR HGB CONC 33 g/dl (31.0-36.0); MEAN CORPUSCULAR VOLUME 95 fL (82-100); MONOCYTES # (AUTO) 0.7 /CMM (0.1-1.30); MONOCYTES % (AUTO) 9.9 % (2.0-12.0); NEUTROPHILS # (AUTO) 4.5 /CMM (1.8-8.9); NEUTROPHILS % (AUTO) 64.4 % (43.0-81.0); PLATELET COUNT (AUTO) 302 /CMM (150-450); RED BLOOD CELL COUNT(AUTO) 4.43 MIL/uL (4.0-5.2); WHITE BLOOD COUNT (AUTO) 6.9 K/uL (4.3-11.0)
[2019-06-17 14:48] LABS: CARBON DIOXIDE 29 mmol/L (21-32); CHLORIDE 104 mmol/L (98-107); POTASSIUM 3.8 mmol/L (3.5-5.1); SODIUM SERUM 141 mmol/L (136-145)
[2019-06-17 14:49] LABS: ALANINE AMINOTRANSFERASE 61 U/L (12-78); ALKALINE PHOSPHATASE 65 U/L (46-116); ASPARTATE AMINOTRANSFERASE 36 U/L (15-37); BILIRUBIN,DIRECT 0.1 mg/dL (0.0-0.2); BILIRUBIN,TOTAL 0.4 mg/dL (0.2-1.0); CALCIUM, SERUM 9.5 mg/dL (8.5-10.1); GLUCOSE 95 mg/dL (74-106); UREA NITROGEN, BLOOD 16 mg/dL (7-18)
[2019-06-17 14:50] LABS: ALBUMIN 3.9 g/dL (3.4-5.0); TOTAL PROTEIN, SERUM 8.4 g/dL (6.4-8.2)
[2019-06-17 17:30] VITALS: BP 139/75
--- NOTE | 2019-06-17 17:50 | NUR ---
pt does not wish to be transferred to [facility]. pt wants to sign ama. pt does not have transport back to home, spoke to nursing sup, recd taxi voucher at this time.
--- NOTE | 2019-06-17 17:51 | NUR ---
CLAYTON DUFF FROM [facility] GAVE TRANSFER INFO. PT GOING TO [facility] ROOM 208-B. STAN IS THE NURSE. NUMBER FOR REPORT .
--- NOTE | 2019-06-17 17:51 | NUR ---
spoke [facility] nursing sup, per [facility], pt has rec'd 4 taxi vouchers recently
--- NOTE | 2019-06-17 17:59 | NUR ---
Patient does not wish to proceed with medical care recommended by Dr. Dominique. Patient given information related to possible complications, up to and including , which could occur as a result of leaving the hospital at this time. Patient verbalizes understanding of risks involved due to leaving against medical advice. Patient has signed AMA form.
--- NOTE | 2019-06-17 18:00 | NUR ---
called [facility] for pt, voucher given to admitting dept.
--- NOTE | 2019-06-17 18:17 | NUR ---
pt left via private taxi, pt left in stable condition
== END 2019-06-17 18:22 | disposition left against medical advice (07) ==
LOC: ER 13:30
DX: R55 Syncope and collapse (principal); I10 Essential (primary) hypertension; Z60.2 Problems related to living alone; Z79.899 Other long term (current) drug therapy
CPT/HCPCS: 36415; 70450; 71045; 80048; 80076; 84484; 85025; 85730; 93005; 99284; J7040

== ENCOUNTER 2019-07-09 13:28 | Emergency (ER) | payer OTHER ==
[~2019-07-09] VITALS: Ht 152.4 cm; Wt 47.2 kg
--- NOTE | 2019-07-09 13:40 | NUR ---
BIBRA39 FRM HOME, GENERALIZED WEAKNESS, FEELING "FAINT." PATIENT A/OX4, BREATHING EVEN AND UNLABORED, NO SOB NOTED, C/O DIZZINESS.
[2019-07-09] MEDS ORDERED: MECLIZINE HCL 25 MG TABLET ONE (13:47)
[2019-07-09] MEDS ORDERED: ONDANSETRON 4 MG TAB.RAPDIS ONE (13:47)
[2019-07-09] MEDS ORDERED: ONDANSETRON 4 MG TAB.RAPDIS SL ONE (14:00)
[2019-07-09] MEDS ORDERED: MECLIZINE HCL 12.5 MG TABLET PO ONE (14:00)
[2019-07-09 14:05] LABS: BASOPHILS # (AUTO) 0.1 /CMM (0.0-0.2); EOSINOPHILS % (AUTO) 1.5 % (0.0-6.0); HEMATOCRIT 44 % (33-45); HEMOGLOBIN 14.3 g/dL (11.5-14.8); LYMPHOCYTES # (AUTO) 1.9 /CMM (0.8-4.8); LYMPHOCYTES % (AUTO) 27.5 % (20.0-44.0); MEAN CORPUSCULAR HGB CONC 33 g/dl (31.0-36.0); MEAN CORPUSCULAR VOLUME 93 fL (82-100); MONOCYTES # (AUTO) 0.8 /CMM (0.1-1.30); MONOCYTES % (AUTO) 11.5 % (2.0-12.0); NEUTROPHILS # (AUTO) 4.1 /CMM (1.8-8.9); NEUTROPHILS % (AUTO) 58.5 % (43.0-81.0); PLATELET COUNT (AUTO) 315 /CMM (150-450); RED BLOOD CELL COUNT(AUTO) 4.73 MIL/uL (4.0-5.2)
[2019-07-09 14:11] LABS: CALCIUM, SERUM 9.7 mg/dL (8.5-10.1); CREATININE 0.6 mg/dL (0.6-1.3); POTASSIUM 4.4 mmol/L (3.5-5.1)
[2019-07-09 14:26] LABS: APPEARANCE,URINE Clear (CLEAR); BILIRUBIN,URINE Negative (NEGATIVE); BLOOD, URINE Negative Ery/uL (NEGATIVE); COLOR,URINE Yellow (YELLOW); KETONES,URINE Negative (NEGATIVE); LEUKOCYTE ESTERASE ,URINE Negative (NEGATIVE); NITRITE, URINE Negative (NEGATIVE); PROTEIN,URINE Negative (NEGATIVE); UGLUCOSE Negative (NEGATIVE); UROBILINOGEN,URINE 0.2 EU/dL (0.2)
--- NOTE | 2019-07-09 15:36 | NUR ---
PATIENT AMBULATORY, NO DISTRESS NOTED, DENIES DIZZINESS. PATIENT PROVIDED TAXI. Patient discharged to home in stable condition. Written and verbal after care instructions given. Patient verbalizes understanding of instruction.
[2019-07-09 15:38] VITALS: BP 157/75
== END 2019-07-09 15:38 | disposition home or self-care (01) ==
LOC: ER 13:33
DX: R42 Dizziness and giddiness (principal); I10 Essential (primary) hypertension; Z60.2 Problems related to living alone; Z79.899 Other long term (current) drug therapy
CPT/HCPCS: 36415; 80048; 81001; 85025; 99283; J8597; Q0162; 81000-TC

== ENCOUNTER 2019-07-22 16:55 | Emergency (ER) | payer OTHER ==
[~2019-07-22] VITALS: Ht 152.4 cm; Wt 47.6 kg
--- NOTE | 2019-07-22 17:03 | NUR ---
PT BIBA 878 FROM HOME. PT c/o "Feel weak/dizzy was recently seen here and her primary in the morning." pt aaox4., no neuro deficit noted. pt states "I feel better that I am here now, I was feeling dizzy when I would walk." VSS. RR even and unlabored. No acute distress noted. Awaiting MD for eval.
--- NOTE | 2019-07-22 17:29 | NUR ---
BG 123 MD AWARE.
--- NOTE | 2019-07-22 17:57 | NUR ---
AIRCRAFT SYSTEMS REPAIRER AT BEDSIDE FOR LAB COLLECTION
[2019-07-22 18:19] LABS: BASOPHILS % (AUTO) 0.5 % (0.0-2.0); EOSINOPHILS % (AUTO) 1.2 % (0.0-6.0); HEMATOCRIT 44 % (33-45); HEMOGLOBIN 14.2 g/dL (11.5-14.8); LYMPHOCYTES # (AUTO) 2.3 /CMM (0.8-4.8); LYMPHOCYTES % (AUTO) 28.1 % (20.0-44.0); MEAN CORPUSCULAR HGB CONC 33 g/dl (31.0-36.0); MEAN CORPUSCULAR VOLUME 94 fL (82-100); MONOCYTES # (AUTO) 0.8 /CMM (0.1-1.30); MONOCYTES % (AUTO) 9.7 % (2.0-12.0); NEUTROPHILS # (AUTO) 4.9 /CMM (1.8-8.9); NEUTROPHILS % (AUTO) 60.5 % (43.0-81.0); PLATELET COUNT (AUTO) 263 /CMM (150-450); RED BLOOD CELL COUNT(AUTO) 4.66 MIL/uL (4.0-5.2)
[2019-07-22 18:27] LABS: CALCIUM, SERUM 9.9 mg/dL (8.5-10.1); CARBON DIOXIDE 27 mmol/L (21-32); CHLORIDE 101 mmol/L (98-107); CREATININE 0.6 mg/dL (0.6-1.3); GLUCOSE 114 mg/dL (74-106); POTASSIUM 3.9 mmol/L (3.5-5.1); SODIUM SERUM 139 mmol/L (136-145); UREA NITROGEN, BLOOD 17 mg/dL (7-18)
[2019-07-22] MEDS ORDERED: MECLIZINE HCL 25 MG TABLET ONE (18:27)
[2019-07-22] MEDS ORDERED: MECLIZINE HCL 12.5 MG TABLET PO ONE (18:30)
[2019-07-22 18:40] LABS: ALANINE AMINOTRANSFERASE 21 U/L (12-78); ALBUMIN 3.8 g/dL (3.4-5.0); ALKALINE PHOSPHATASE 52 U/L (46-116); ASPARTATE AMINOTRANSFERASE 26 U/L (15-37); B-TYPE NATRIURETIC PEPTIDE 436 PG/ML (0-125); BILIRUBIN,DIRECT 0.1 mg/dL (0.0-0.2); BILIRUBIN,TOTAL 0.6 mg/dL (0.2-1.0)
--- NOTE | 2019-07-22 19:11 | NUR ---
Patient discharged to home in stable condition. Written and verbal after care instructions given. Patient verbalizes understanding of instruction and RX. PT ambulatory with steady gait. Pt walked through the ED with steady gait. VSS. IV removed. Catheter intact and site benign. Pressure and 4x4 applied to site. No bleeding noted.
--- NOTE | 2019-07-22 19:15 | NUR ---
PT GIVEN TAXI V.
[2019-07-22 19:19] VITALS: BP 138/72
== END 2019-07-22 19:46 | disposition home or self-care (01) ==
LOC: ER 16:58
DX: R42 Dizziness and giddiness (principal); R00.0 Tachycardia, unspecified; I10 Essential (primary) hypertension; Z90.49 Acquired absence of other specified parts of digestive tract; Z60.2 Problems related to living alone; Z79.899 Other long term (current) drug therapy
CPT/HCPCS: 36415; 71045; 80048; 80076; 82962; 83880; 84484; 85025; 85730; 93005; 99284; J8597

== ENCOUNTER 2019-08-14 09:38 | Emergency (ER) | payer OTHER ==
[~2019-08-14] VITALS: Ht 152.4 cm; Wt 49.9 kg
--- NOTE | 2019-08-14 09:45 | NUR ---
pt omhsen from home to er bed 02 c/o dizziness. states just made breakfast and was watching tv and felt dizzy and nearly fainted. pt states similar issues in the past that made her call 911. gowned and placed on monitor. stable vitals. awaiting md olivo.
--- NOTE | 2019-08-14 09:46 | NUR ---
dr padron at bedside for eval.
[2019-08-14] MEDS ORDERED: IV NS 0.9% 500 ML BAG IV ONE (10:00)
[2019-08-14 10:09] LABS: BASOPHILS # (AUTO) 0.1 /CMM (0.0-0.2); BASOPHILS % (AUTO) 0.6 % (0.0-2.0); EOSINOPHILS % (AUTO) 0.6 % (0.0-6.0); HEMATOCRIT 43 % (33-45); LYMPHOCYTES # (AUTO) 2.7 /CMM (0.8-4.8); LYMPHOCYTES % (AUTO) 28.2 % (20.0-44.0); MEAN CORPUSCULAR HGB CONC 33 g/dl (31.0-36.0); MEAN CORPUSCULAR VOLUME 94 fL (82-100); MONOCYTES # (AUTO) 0.9 /CMM (0.1-1.30); NEUTROPHILS % (AUTO) 61.6 % (43.0-81.0); PLATELET COUNT (AUTO) 232 /CMM (150-450); RED BLOOD CELL COUNT(AUTO) 4.54 MIL/uL (4.0-5.2); WHITE BLOOD COUNT (AUTO) 9.7 K/uL (4.3-11.0)
[2019-08-14 10:36] LABS: CALCIUM, SERUM 9.4 mg/dL (8.5-10.1); CARBON DIOXIDE 29 mmol/L (21-32); CHLORIDE 103 mmol/L (98-107); CREATININE 0.6 mg/dL (0.6-1.3); GLUCOSE 115 mg/dL (74-106); POTASSIUM 4.3 mmol/L (3.5-5.1); SODIUM SERUM 140 mmol/L (136-145); UREA NITROGEN, BLOOD 15 mg/dL (7-18)
[2019-08-14] MEDS ORDERED: ATOR10TA PO (11:12)
--- NOTE | 2019-08-14 11:20 | NUR ---
tesfaye garcia at bedside. talking to patient.
--- NOTE | 2019-08-14 11:30 | NUR ---
Social service consult requested by MD due to pt. unable to care for herself. Per chart review and MD notes, pt is a 88-year-old female presenting to the emergency room because she stated she felt lightheaded this morning. She lives alone and began to feel lightheaded and fell backwards onto her couch. CONTINUITY PERSON met with the pt bedside. Pt is alert and oriented x 4. Pt. states she lives alone, has no family and is unable to care for self at home. Pt. states she needs help at home with her ADLS and IADLs. CONTINUITY PERSON offered pt. list of caregivers, however pt. states, she is not able to afford it. Pt has minimum income with her SSI and is not able to pay for a private caregiver. CONTINUITY PERSON to refer pt to APS if pt. is discharged back home for f/up to assess pt's home situation. CONTINUITY PERSON provided pt with active listening and supportive counseling. Pt to be referred to her insurance [employer] for further plan of care.
--- NOTE | 2019-08-14 13:52 | NUR ---
called PCP office. awaiting call back.
--- NOTE | 2019-08-14 14:48 | NUR ---
kaycee briefcase sewer for [facility] called back. advised that she needs to talk to medical receptionist medical assistant regarding plan of care.
--- NOTE | 2019-08-14 16:04 | NUR ---
spoke to kaycee, therapeutic case manager for [facility] informing us that they will follow up with patient tomorrow to discuss possible placement and home health assistance. will inform miguelangel bond.
--- NOTE | 2019-08-14 16:08 | NUR ---
POWER MARKETER filed APS report due to pt. residing alone and unable to care for herself, per pt. APS intake ID #[id number].
--- NOTE | 2019-08-14 16:22 | NUR ---
CALLED TRANSPORT AND ETA IS 1900 PER [facility] TRIP #[id number].
--- NOTE | 2019-08-14 17:52 | NUR ---
Patient discharged to home in stable condition. Written and verbal after care instructions given. Patient verbalizes understanding of instruction.IV removed. Catheter intact and site benign. Pressure and 4x4 applied to site. No bleeding noted.
[2019-08-14 17:53] VITALS: BP 135/65
== END 2019-08-14 17:53 | disposition home or self-care (01) ==
LOC: ER 09:39
DX: R42 Dizziness and giddiness (principal); I10 Essential (primary) hypertension; Z60.2 Problems related to living alone; Z79.899 Other long term (current) drug therapy
CPT/HCPCS: 36415; 80048; 84484; 85025; 93005; 99285; J7040

== ENCOUNTER 2019-08-17 14:57 | Emergency (ER) | payer OTHER ==
[~2019-08-17] VITALS: Ht 152.4 cm; Wt 46.3 kg
[~2019-08-17 14:57] MED LIST changes: +ATOR10TA PO
[2019-08-17 15:37] LABS: BASOPHILS % (AUTO) 0.3 % (0.0-2.0); EOSINOPHILS % (AUTO) 0.6 % (0.0-6.0); HEMATOCRIT 45 % (33-45); HEMOGLOBIN 14.7 g/dL (11.5-14.8); LYMPHOCYTES # (AUTO) 2.8 /CMM (0.8-4.8); LYMPHOCYTES % (AUTO) 33.9 % (20.0-44.0); MEAN CORPUSCULAR HGB CONC 33 g/dl (31.0-36.0); MEAN CORPUSCULAR VOLUME 94 fL (82-100); MONOCYTES # (AUTO) 0.8 /CMM (0.1-1.30); MONOCYTES % (AUTO) 10.1 % (2.0-12.0); NEUTROPHILS # (AUTO) 4.5 /CMM (1.8-8.9); NEUTROPHILS % (AUTO) 55.1 % (43.0-81.0); PLATELET COUNT (AUTO) 218 /CMM (150-450); RED BLOOD CELL COUNT(AUTO) 4.81 MIL/uL (4.0-5.2); WHITE BLOOD COUNT (AUTO) 8.2 K/uL (4.3-11.0)
--- NOTE | 2019-08-17 15:43 | NUR ---
Patient awake alert to name she does follow @ this time noted able to ambulated patient made aware paln of care ``
[2019-08-17 15:56] LABS: ALANINE AMINOTRANSFERASE 26 U/L (12-78); ALCOHOL, BLOOD < 3 mg/dL (0-0); ALKALINE PHOSPHATASE 56 U/L (46-116); ASPARTATE AMINOTRANSFERASE 28 U/L (15-37); BILIRUBIN,DIRECT 0.1 mg/dL (0.0-0.2); BILIRUBIN,TOTAL 0.4 mg/dL (0.2-1.0); CALCIUM, SERUM 9.7 mg/dL (8.5-10.1); CARBON DIOXIDE 28 mmol/L (21-32); CHLORIDE 102 mmol/L (98-107); CREATININE 0.7 mg/dL (0.6-1.3); GLUCOSE 95 mg/dL (74-106); POTASSIUM 4.1 mmol/L (3.5-5.1); SALICYLATE 1.9 mg/dL (2.8-20.0); SODIUM SERUM 140 mmol/L (136-145)
[2019-08-17 15:57] LABS: ACETAMINOPHEN 0 ug/ml (10-30)
[2019-08-17 16:05] LABS: UREA NITROGEN, BLOOD 17 mg/dL (7-18)
--- NOTE | 2019-08-17 16:36 | NUR ---
Patient agrees for in and out cath assited by igor Perez observed sterile technique urine obtained and send to lab
--- NOTE | 2019-08-17 16:45 | NUR ---
[facility] ETA 1HR
[2019-08-17 17:24] LABS: APPEARANCE,URINE Clear (CLEAR); BILIRUBIN,URINE Negative (NEGATIVE); BLOOD, URINE Negative Ery/uL (NEGATIVE); COLOR,URINE Yellow (YELLOW); KETONES,URINE Negative (NEGATIVE); LEUKOCYTE ESTERASE ,URINE Negative (NEGATIVE); NITRITE, URINE Negative (NEGATIVE); PH,URINE 5.5 (5.0-8.0); PROTEIN,URINE Negative (NEGATIVE); UGLUCOSE Negative (NEGATIVE); UROBILINOGEN,URINE 0.2 EU/dL (0.2)
--- NOTE | 2019-08-17 17:24 | NUR ---
Noted patient able to ambulated to Rest room with minmal assist .
--- NOTE | 2019-08-17 19:14 | NUR ---
Report given to Selwyn
--- NOTE | 2019-08-17 19:16 | NUR ---
[facility] ETA 213
--- NOTE | 2019-08-17 21:45 | NUR ---
REPORT GIVEN TO [facility] FOR TRANSPORTATION EFRAIN
[2019-08-17 21:46] VITALS: BP 126/73
== END 2019-08-17 21:46 | disposition home or self-care (01) ==
LOC: ER 15:00
DX: F32.9 Major depressive disorder, single episode, unspecified (principal); I10 Essential (primary) hypertension; Z60.2 Problems related to living alone; Z79.899 Other long term (current) drug therapy
CPT/HCPCS: 36415; 80048; 80076; 80305; 80307; 80329; 81001; 85025; 87081; 93005; 99284; G0480; 81000-TC

== ENCOUNTER 2019-09-11 17:15 | Emergency (ER) | payer OTHER ==
[~2019-09-11] VITALS: Ht 152.4 cm; Wt 47.6 kg
--- NOTE | 2019-09-11 17:21 | NUR ---
BIBRA 860 FROM HOME C/O DIZZNESS STARTED 8HRS AGO, TO ER BED 11, HOOKED TO MONITOR, CHANGED TO HOSP GOWN, WARM BLANKET PROVIDED, AWAITING MD TRAYLOR.
[2019-09-11] MEDS ORDERED: MECLIZINE HCL 25 MG TABLET ONE (17:47)
--- NOTE | 2019-09-11 17:51 | NUR ---
SPECIALTY PERSON AT BEDSIDE
[2019-09-11] MEDS ORDERED: MECLIZINE HCL 12.5 MG TABLET PO ONE (18:00)
[2019-09-11] MEDS ORDERED: IV NS 0.9% 1,000 ML BAG IV ONE (18:00)
[2019-09-11 18:04] LABS: BASOPHILS % (AUTO) 0.5 % (0.0-2.0); EOSINOPHILS % (AUTO) 0.7 % (0.0-6.0); HEMATOCRIT 46 % (33-45); HEMOGLOBIN 14.8 g/dL (11.5-14.8); LYMPHOCYTES # (AUTO) 2.4 /CMM (0.8-4.8); MEAN CORPUSCULAR HGB CONC 33 g/dl (31.0-36.0); MEAN CORPUSCULAR VOLUME 97 fL (82-100); MONOCYTES # (AUTO) 0.8 /CMM (0.1-1.30); MONOCYTES % (AUTO) 10.3 % (2.0-12.0); NEUTROPHILS # (AUTO) 4.5 /CMM (1.8-8.9); NEUTROPHILS % (AUTO) 57.5 % (43.0-81.0); PLATELET COUNT (AUTO) 195 /CMM (150-450); RED BLOOD CELL COUNT(AUTO) 4.71 MIL/uL (4.0-5.2); WHITE BLOOD COUNT (AUTO) 7.9 K/uL (4.3-11.0)
[2019-09-11 18:15] LABS: CALCIUM, SERUM 9.3 mg/dL (8.5-10.1); CARBON DIOXIDE 27 mmol/L (21-32); CHLORIDE 102 mmol/L (98-107); CREATININE 0.7 mg/dL (0.6-1.3); GLUCOSE 108 mg/dL (74-106); POTASSIUM 4.6 mmol/L (3.5-5.1); SODIUM SERUM 137 mmol/L (136-145); UREA NITROGEN, BLOOD 22 mg/dL (7-18)
[2019-09-11 18:26] LABS: ALANINE AMINOTRANSFERASE 22 U/L (12-78); ALBUMIN 3.7 g/dL (3.4-5.0); ALKALINE PHOSPHATASE 47 U/L (46-116); ASPARTATE AMINOTRANSFERASE 31 U/L (15-37); BILIRUBIN,DIRECT 0.1 mg/dL (0.0-0.2); BILIRUBIN,TOTAL 0.6 mg/dL (0.2-1.0); TOTAL PROTEIN, SERUM 7.5 g/dL (6.4-8.2)
[2019-09-11] MEDS ORDERED: LEVOFLOXACIN (500MG) 500 MG TABLET PO ONE (18:30)
[2019-09-11] MEDS ORDERED: CEFTRIAXONE 1GM BAG (ER ONLY) 50 ML IV ONE ×2 (18:30→18:50)
[2019-09-11 18:32] LABS: APPEARANCE,URINE Clear (CLEAR); BILIRUBIN,URINE Negative (NEGATIVE); BLOOD, URINE Trace-intact Ery/uL (NEGATIVE); COLOR,URINE Yellow (YELLOW); KETONES,URINE Negative (NEGATIVE); LEUKOCYTE ESTERASE ,URINE Small (NEGATIVE); NITRITE, URINE Negative (NEGATIVE); PH,URINE 6.5 (5.0-8.0); PROTEIN,URINE Negative (NEGATIVE); UGLUCOSE Negative (NEGATIVE); UROBILINOGEN,URINE 0.2 EU/dL (0.2)
--- NOTE | 2019-09-11 18:35 | NUR ---
PATIENT REFUSED BLOOD DRAW FOR CULTURE AND LACTIC ACID. DR MATSON AWARE
[2019-09-11] MEDS ORDERED: LEVOFLOXACIN 500 MG /D5W 100ML 0 ML IV ONE (18:50)
[2019-09-11 19:03] LABS: BACTERIA,URINE 1+ /HPF (None Seen); SQUAMOUS EPITHELIAL CELL,UR Few /HPF (None Seen)
--- NOTE | 2019-09-11 19:22 | NUR ---
REPORT GIVEN TO BLESSING GUATAM FOR EFRAIN
[2019-09-11] MEDS ORDERED: LEVOFLOXACIN (500MG) 500 MG TABLET ONE (19:24)
--- NOTE | 2019-09-11 20:18 | NUR ---
FLU AND RSV SWAB SAMPLES SENT TO LAB FOR TESTING
--- NOTE | 2019-09-11 21:57 | NUR ---
ACCEPTED AT [facility] 321-B FOR REPORT
--- NOTE | 2019-09-11 22:30 | NUR ---
REPORT GIVEN TO JESSICA GAUTAM AT [facility] FOR EFRAIN.
--- NOTE | 2019-09-11 22:31 | NUR ---
Kd desai in ED - 09/11/19 at 2232 by CHRIS REPORT GIVEN TO JESSICA GAUTAM FOR EFRAIN.
[2019-09-11 22:32] VITALS: BP 130/73
== END 2019-09-11 22:33 | disposition home or self-care (01) ==
LOC: ER 17:20
DX: J18.9 Pneumonia, unspecified organism (principal); R42 Dizziness and giddiness; I10 Essential (primary) hypertension; Z60.2 Problems related to living alone; Z79.899 Other long term (current) drug therapy
CPT/HCPCS: 36415; 71045; 80048; 80076; 81001; 84145; 84484; 85025; 85730; 87081; 87086; 87420; 87804 ×2; 93005; 96361; 96365; 99285; J0696; J7030; J8597; 81000-TC; J1956